=== PATIENT | male | born 1940 | race Caucasian/White ===

== ENCOUNTER 2019-04-21 09:20 | Day surgery (SDC) | payer OTHER, BC ==
[~2019-04-21] VITALS: Ht 180.3 cm; Wt 74.8 kg
[~2019-04-21 09:20] MED LIST: ASPIRIN325 PO; CHANTIX1 MG PO; CRESTOR10 MG PO; DULOXETINE HCL60 MG PO; LISINOPRIL40 MG PO; MULTIVITAMINS PO; NAMENDA 10 MG T10 MG PO; NORCO 5-325 TA1 EAC1 PO; NORVASC10 MG PO; OXYBUTYNIN 5 MG5 M1 PO; PRAMIPEXOLE DI0.5 MG PO; PREVACID30 MG PO; PROVIGIL 200 M200 MG PO; TOPROL XL100 MG PO; TRAZODONE HCL50 MG PO; VENTOLIN HFA INH8 GM INH; VITAMIN D325 MC5 PO; ZOFRAN4 MG PO
[2019-04-21 10:21] VITALS: BP 148/91
[2019-04-21 10:35] LABS: HEMATOCRIT 33.8 % (42.0-52.0); HEMOGLOBIN 11.4 gm/dL (14.0-18.0)
--- NOTE | 2019-04-23 15:08 | PATH ---
[facility] [address] [place] [address] PATHOLOGY RPT PROCEDURE Name: DENISEWILLIAN Jadyn Room #: DEP [facility] [place] M.R.#: [id number] Admission: 04/21/19 Date of : 42 Discharge: 04/21/19 Report #: [id number] Path Case #: [id number] [facility] Accession Number: [id number] . 01 Material submitted: . foot - BONE RIGHT FOOT. Modifiers: right . 01 Clinical history: . Exostosis right foot . 02 Diagnosis: Bone and surrounding soft tissue "bone": - Benign fragment of bone with fatty marrow and surrounding fibrous tissue. - There is no evidence of atypia or malignancy. See comment. . (SHA:carlos; 04/23/2019) [facility] [place] 04/23/[place] 1316 Local . 02 Comment: Clinically consistent with exostosis. (SHA:carlos; 04/23/2019) . 02 Electronically signed: . Antonio Claros MD, Pathologist NPI- [id number] . 01 Gross description: . The specimen is received in formalin, labeled "Willian Walker, bone right foot" and consists of 5 segments of sanchez-ott bone/fibrous soft tissue measuring 3.3 x 1.9 x 0.7 cm. Metal Trim Erector tissue is submitted in A1 following decalcification. (SDY; 04/22/2019) [facility]U 04/22/2019 1109 Local . 02 Pathologist provided ICD-10: D16.31 . 02 CPT . 809521, [id number] Performed at: [address], [place], [place] [id number] MD Flip Higginbotham MD Phone: [phone] Performed at: [address] [id number] [address] [address] PATHOLOGY RPT PROCEDURE Name: WILLIAN WALKER Room #: DEP [facility].#: [id number] Admission: 04/21/19 Date of : 42 Discharge: 04/21/19 Report #: [id number] Path Case #: [id number] MD Shannon Lincoln MD Phone: [phone]
== END 2019-04-21 13:08 | disposition home or self-care (01) ==
LOC: OR 09:20 → TBA 09:20 → OR 10:47
PROVIDERS: Podiatrist Foot & Ankle Surgery
DX: M89.8X7 Other specified disorders of bone, ankle and foot (principal); D16.31 Benign neoplasm of short bones of right lower limb; M19.071 Primary osteoarthritis, right ankle and foot; M25.571 Pain in right ankle and joints of right foot; I10 Essential (primary) hypertension; E78.5 Hyperlipidemia, unspecified; I25.10 Atherosclerotic heart disease of native coronary artery without angina pectoris; J43.9 Emphysema, unspecified; F32.9 Major depressive disorder, single episode, unspecified; G47.30 Sleep apnea, unspecified; Z98.890 Other specified postprocedural states; Z79.899 Other long term (current) drug therapy; Z98.41 Cataract extraction status, right eye; Z98.42 Cataract extraction status, left eye; Z95.0 Presence of cardiac pacemaker; Z87.891 Personal history of nicotine dependence; Z85.46 Personal history of malignant neoplasm of prostate; Z85.528 Personal history of other malignant neoplasm of kidney; Z90.5 Acquired absence of kidney
CPT/HCPCS: 50010; 50101; 50386; 50951; 53341; 56526; 57091; 57178; 62110; 62850; 70005

== ENCOUNTER → 2020-05-26 | Outpatient (CLI) | payer OTHER, BC | LOC: SJCVCIMAG 07:36 | PROVIDERS: ATTEND Nuclear Medicine Nuclear Cardiology | DX: I70.203 Unspecified atherosclerosis of native arteries of extremities, bilateral legs (principal); M79.661 Pain in right lower leg; M79.662 Pain in left lower leg ==